=== PATIENT | male | born 1960 | race African-American/Black ===

== ENCOUNTER 2016-11-10 18:49 | Emergency (ER) | payer OTHER ==
[~2016-11-10] VITALS: Ht 170.2 cm; Wt 63.5 kg
[~2016-11-10 18:49] MED LIST: CENTRUM SILVER1 EAC2 PO; HYDROCODONE-AP1 EAC6 PO; OXYCODONE HCL 55 MG PO; TRAMADOL 50 MG50 MG PO
[2016-11-10] MEDS ORDERED: NORCO 5-325 TA1 EACH PO (20:44)
[2016-11-24] MEDS ORDERED: OXYCODONE HCL5 MG PO (14:37)
[2016-11-24] MEDS ORDERED: NORCO 5-325 TA1 EACH PO (14:40)
[2016-11-24] MEDS ORDERED: ANTABUSE250 M1 PO (14:40)
== END 2016-11-10 20:55 | disposition home or self-care (01) ==
LOC: ER 18:49
DX: S93.401A Sprain of unspecified ligament of right ankle, initial encounter (principal); S16.1XXA Strain of muscle, fascia and tendon at neck level, initial encounter; S39.012A Strain of muscle, fascia and tendon of lower back, initial encounter; S40.011A Contusion of right shoulder, initial encounter; F17.210 Nicotine dependence, cigarettes, uncomplicated; Z90.89 Acquired absence of other organs; W18.2XXA Fall in (into) shower or empty bathtub, initial encounter; Y93.89 Activity, other specified; Y92.89 Other specified places as the place of occurrence of the external cause; Y99.9 Unspecified external cause status

== ENCOUNTER → 2017-02-23 | Outpatient (CLI) | payer OTHER ==
[~2017-02-23] MED LIST changes: +ANTABUSE250 M1 PO; +NORCO 5-325 TA1 EACH PO; +OXYCODONE HCL5 MG PO
== END ==
LOC: ULTRA 12:27
DX: R10.84 Generalized abdominal pain (principal)